=== PATIENT | male | born 1955 | race Caucasian/White ===

== ENCOUNTER → 2016-12-14 | Outpatient (CLI) | payer BC ==
--- NOTE | 2016-12-14 13:17 | RADIOLOGY REPORT (SQ) ---
EXAM DESCRIPTION: VENOUS BILATERAL LOWER COMPLETED DATE/TIME: 12/14/2016 12:47 pm REASON FOR STUDY: BLE EDEMA M79.89 OTHER SPECIFIED SOFT TISSUE DISORDERS COMPARISON: None. TECHNIQUE: Dynamic and static quiñonez scale and color images acquired of both lower extremity venous sy stems. Selected spectral images acquired with additional compression and augmentation maneuvers. Imag es stored on PACS. LIMITATIONS: None. FINDINGS: RIGHT LEG COMMON FEMORAL AND FEMORAL: Normal phasicity, compression and augmentation. No visualized echogenic m aterial on quiñonez scale. No defects on color images. POPLITEAL: There is echogenic chronic thrombus along the wall of the right popliteal vein which preve nts complete compression. This is incompletely occlusive. Patient states he had blood clot in this area 3 to 5 years ago. CALF VESSELS: Normal compression and augmentation. No visualized echogenic material on quiñonez scale. No defects on color image. GSV AND SSV: Normal compression. No visualized echogenic material on quiñonez scale. No defects on color images. ANY DEEP VENOUS INSUFFICIENCY: Not evaluated. ANY EVIDENCE OF POPLITEAL CYST: No. OTHER: No other significant finding. LEFT LEG COMMON FEMORAL AND FEMORAL: Normal phasicity, compression and augmentation. No visualized echogenic m aterial on quiñonez scale. No defects on color images. POPLITEAL: Normal compression and augmentation. No visualized echogenic material on quiñonez scale. No de fects on color images. CALF VESSELS: Normal compression and augmentation. No visualized echogenic material on quiñonez scale. No defects on color images. GSV AND SSV: Normal compression. No visualized echogenic material on quiñonez scale. No defects on color images. ANY DEEP VENOUS INSUFFICIENCY: Not evaluated. ANY EVIDENCE POPLITEAL CYST: No. OTHER: No other significant finding. 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 TECHNICAL DOCUMENTATION: JOB ID: [id number] [employer]- All Rights Reserved
== END ==
LOC: SP 09:21
PROVIDERS: ATTEND Internal Medicine Medical Oncology
DX: M79.89 Other specified soft tissue disorders (principal)
CPT/HCPCS: 93970

== ENCOUNTER 2020-02-03 14:16 | Emergency (ER) | payer BC ==
[2020-02-03 14:24] VITALS: BP 141/80
[2020-02-03] MEDS ORDERED: KETOROLAC TROMETHAMINE INJ/PF 30 MG/1 ML SDV IV ONE (14:56)
[2020-02-03] MEDS ORDERED: NORMAL SALINE 1000 ML 1,000 ML IV ONE (14:56)
[2020-02-03] MEDS ORDERED: ONDANSETRON HCL INJ/PF 4 MG/2 ML SDV IV ONE (15:03)
--- NOTE | 2020-02-03 15:03 | ER Document Report ---
ED Medical Screen (RME) - General Chief Complaint: Abdominal Pain Stated Complaint: ABDOMINAL PAIN,BACK PAIN Time Seen by Provider: 02/03/20 14:42 Primary Care Provider: KAITLYN MCCAIN MD [Primary Care Provider] - Follow up as needed TRAVEL OUTSIDE OF THE [place] IN LAST 30 DAYS: No - HPI Notes: 02/03/20 14:56 64-year-old male with a history of diverticulitis, kidney stones partial lower colectomy presents to the emergency room for severely left lower quadrant abdominal pain that started 3 days ago. Reports he did have a large bowel movement on Sunday, but he feels like he can get everything out. His did give him mag citrate and MiraLAX which just made him feel nauseous. Patient denies any melena. Patient has reported increased nausea and vomiting in the last 3 days. was concerned there may be some scar tissue that is causing this left lower quadrant pain. Patient is a had a colonoscopy in 3 years ago I have greeted and performed a rapid initial assessment of this patient. A comprehensive ED assessment and evaluation of the patient, analysis of test results and completion of the medical decision making process will be conducted by additional ED providers. PHYSICAL EXAMINATION: GENERAL: Well-appearing, well-nourished and in mild distress LUNGS: No respiratory distress Musculoskeletal: Normal range of motion abd: LLQ abd pain, guarding - Related Data Allergies/Adverse Reactions: No Known Allergies Allergy (Verified 02/03/20 14:41) Past Medical History - Social History Chew tobacco use (# tins/day): No Frequency of alcohol use: Social Drug Abuse: None - Past Medical History Cardiac Medical History: Reports: Hx DVT, Hx Hypercholesterolemia Denies: Hx Coronary Artery Disease, Hx Heart Attack, Hx Hypertension Pulmonary Medical History: Reports: Hx Pneumonia Denies: Hx Asthma, Hx Bronchitis, Hx COPD Neurological Medical History: Denies: Hx Cerebrovascular Accident, Hx Seizures Renal/ Medical History: Reports: Hx Kidney Stones GI Medical History: Reports: Hx Diverticulitis Musculoskeltal Medical History: Denies Hx Arthritis Past Surgical History: Reports: Hx Adenoidectomy, Hx Herniorrhaphy, Hx Oral Surgery, Hx Tonsillectomy, Hx Umbilical Hernia - Immunizations Immunizations up to date: Yes Hx Diphtheria, Pertussis, Tetanus Vaccination: Yes Physical Exam - Vital signs Vitals: Temp Pulse Resp BP Pulse Ox 98.6 F 72 16 141/80 H 97 02/03/20 14:22 02/03/20 14:22 02/03/20 14:22 02/03/20 14:22 02/03/20 14:22 Course - Vital Signs Vital signs: Temp Pulse Resp BP Pulse Ox 98.6 F 72 16 141/80 H 97 02/03/20 14:41 02/03/20 14:22 02/03/20 14:22 02/03/20 14:22 02/03/20 14:22 Doctor's Discharge - Discharge Referrals: KAITLYN MCCAIN MD [Primary Care Provider] - Follow up as needed
[2020-02-03 15:46] LABS: ABSOLUTE EOSINOPHILS # (AUTO) 0.1 10^3/uL (0.0-0.6); ABSOLUTE LYMPHOCYTES (AUTO) 1.1 10^3/uL (0.5-4.7); ABSOLUTE MONOCYTES (AUTO) 0.8 10^3/uL (0.1-1.4); AMORPHOUS SEDIMENT,URINE TRACE /HPF; APPEARANCE,URINE CLOUDY; BASOPHILS % (AUTO) 0.3 % (0-2); BILIRUBIN,URINE NEGATIVE (NEGATIVE); COLOR,URINE YELLOW; EOSINOPHILS % (AUTO) 0.8 % (0-6); GLUCOSE, URINE NEGATIVE (NEGATIVE); HEMATOCRIT 44.7 % (37.9-51.0); HEMOGLOBIN 15.1 g/dL (13.5-17.0); KETONES,URINE NEGATIVE (NEGATIVE); LEUKOCYTE ESTERASE,URINE NEGATIVE (NEGATIVE); LYMPHOCYTES % (AUTO) 13.7 % (13-45); MEAN CORPUSCULAR HEMOGLOBIN 28.8 pg (27.0-33.4); MEAN CORPUSCULAR HGB CONC 33.8 g/dL (32.0-36.0); MEAN CORPUSCULAR VOLUME 85 fl (80-97); MONOCYTES % (AUTO) 10.4 % (3-13); NITRITE,URINE NEGATIVE (NEGATIVE); PLATELET COUNT 209 10^3/uL (150-450); PROTEIN,URINE NEGATIVE (NEGATIVE); RED BLOOD COUNT 5.25 10^6/uL (4.35-5.55); RED CELL DISTRIBUTION WIDTH 13.2 % (11.5-14.0); SEGMENTED NEUTROPHILS % (AUTO) 74.8 % (42-78); TOTAL CELLS COUNTED % (AUTO) 100 %; URINE SPECIFIC GRAVITY 1.017; UROBILINOGEN,URINE NEGATIVE mg/dL (<2.0); WHITE BLOOD COUNT 8.1 10^3/uL (4.0-10.5)
[2020-02-03 15:51] LABS: ALBUMIN 4.2 g/dL (3.5-5.0); ALKALINE PHOSPHATASE 91 U/L (38-126); ANION GAP 10 (5-19); ASPARTATE AMINO TRANSFERASE 27 U/L (17-59); BILIRUBIN,DIRECT 0.3 mg/dL (0.0-0.4); BILIRUBIN,TOTAL 0.7 mg/dL (0.2-1.3); BLOOD UREA NITROGEN 17 mg/dL (7-20); CALCIUM 9.6 mg/dL (8.4-10.2); CARBON DIOXIDE 28 mmol/L (22-30); CHLORIDE 103 mmol/L (98-107); GLUCOSE 127 mg/dL (75-110); POTASSIUM 4.7 mmol/L (3.6-5.0); TOTAL PROTEIN 6.7 g/dL (6.3-8.2)
--- NOTE | 2020-02-03 17:04 | ER Document Report ---
ED GI/ - General Chief Complaint: Abdominal Pain Stated Complaint: ABDOMINAL PAIN,BACK PAIN Time Seen by Provider: 02/03/20 14:42 Primary Care Provider: KAITLYN MCCAIN MD [Primary Care Provider] - Follow up as needed Notes: CHIEF COMPLAINT: Abdominal pain and constipation for 5 days HPI: 64-year-old male with history of diverticulitis and kidney stones presenting to the emergency department for evaluation of left flank pain that began approximately 5 days ago, sharp in nature, seems to go away 3 days ago and then reoccurred 2 days ago. Describes constipation for the last 3 days. Patient states it does feel slightly like his diverticulitis does not feel like his kidney stones. Patient states that bending and moving did not seem to change the character of the discomfort. states that she has given the patient magnesium citrate at home and he did have a bowel movement 3 days ago but has been having more difficulty the last 2 days. Patient did throw up the magnesium citrate today. Patient denies any penile or testicular pain ROS: See HPI - all other systems were reviewed and are otherwise negative Constitutional: no fever Eyes: no drainage, no blurred vision ENT: no runny nose, no sore throat Cardiovascular: no chest pain Resp: no SOB, no cough GI: no vomiting, no diarrhea, + abdominal pain : no dysuria Integumentary: no rash Allergy: no hives Musculoskeletal: no extremity pain or swelling Neurological: no numbness/tingling, no weakness MEDICATIONS: I agree with the patient medications as charted by the RN. ALLERGIES: I agree with the allergies as charted by the RN. PAST MEDICAL HISTORY/PAST SURGICAL HISTORY: Reviewed and agree as charted by RN. SOCIAL HISTORY: Reviewed and agree as charted by RN. FAMILY HISTORY: No significant familial comorbid conditions directly related to patient complaint EXAM: Reviewed vital signs as charted by RN. CONSTITUTIONAL: Alert and oriented and responds appropriately to questions. Well-appearing; well-nourished HEAD: Normocephalic; atraumatic EYES: PERRL; Conjunctivae clear, sclerae non-icteric ENT: normal nose; no rhinorrhea; moist mucous membranes; pharynx without lesions noted, no uvula edema or deviation, no tonsillar hypertrophy, phonation normal NECK: Supple without meningismus; non-tender; no cervical lymphadenopathy, no masses CARD: RRR; no murmurs, no clicks, no rubs, no gallops; symmetric distal pulses RESP: Normal chest excursion without splinting or tachypnea; breath sounds clear and equal bilaterally; no wheezes, no rhonchi, no rales, pulse oximetry 99% on room air not hypoxic ABD/GI: Normal bowel sounds; non-distended; soft, unable to reproduce any discomfort on palpation of the abdomen, no rebound, no guarding; no palpable organomegaly or masses. BACK: The back appears normal and is non-tender to palpation, there is no CVA tenderness EXT: Normal ROM in all joints; non-tender to palpation; no cyanosis, no effusions, no edema SKIN: Normal color for age and race; warm; dry; good turgor; no acute lesions noted NEURO: Moves all extremities equally; Motor and sensory function intact PSYCH: The patient's mood and manner are appropriate. Grooming and personal hygiene are appropriate. MDM: 64-year-old male left lower quadrant left flank pain over the last several days with constipation. Diverticulitis and kidney stone history. Has had a left colectomy previously from the diverticulitis. Initial screening labs did not show significant abnormalities although he does have trace hematuria noted. He does not have reproducible pain on exam, CT imaging ordered via triage process TRAVEL OUTSIDE OF THE [place] IN LAST 30 DAYS: No - Related Data Allergies/Adverse Reactions: No Known Allergies Allergy (Verified 02/03/20 14:41) Past Medical History - Social History Smoking Status: Never Smoker Chew tobacco use (# tins/day): No Frequency of alcohol use: Social Drug Abuse: None Family History: Reviewed & Not Pertinent Patient has homicidal ideation: No - Past Medical History Cardiac Medical History: Reports: Hx DVT, Hx Hypercholesterolemia Denies: Hx Coronary Artery Disease, Hx Heart Attack, Hx Hypertension Pulmonary Medical History: Reports: Hx Pneumonia Denies: Hx Asthma, Hx Bronchitis, Hx COPD Neurological Medical History: Denies: Hx Cerebrovascular Accident, Hx Seizures Renal/ Medical History: Reports: Hx Kidney Stones GI Medical History: Reports: Hx Diverticulitis Musculoskeletal Medical History: Denies Hx Arthritis Past Surgical History: Reports: Hx Adenoidectomy, Hx Herniorrhaphy, Hx Oral Surgery, Hx Tonsillectomy, Hx Umbilical Hernia - Immunizations Immunizations up to date: Yes Hx Diphtheria, Pertussis, Tetanus Vaccination: Yes Hx Pneumococcal Vaccination: 06/19/13 Physical Exam - Vital signs Vitals: Temp Pulse Resp BP Pulse Ox 98.6 F 72 16 141/80 H 97 02/03/20 14:22 02/03/20 14:22 02/03/20 14:22 02/03/20 14:22 02/03/20 14:22 Course - Re-evaluation Re-evalutation: 02/03/20 19:22 Patient was noted to have a 1.1 cm mid ureteral stone on the left. I discussed this with Dr. Topher Wolff at [facility] per the patient's request as he prefers to go to [facility] for his care. As patient is reasonably comfortable at this time he believes patient may be discharged and they will call the patient to be seen in clinic tomorrow as he will likely need extraction of this kidney stone. I discussed this with the patient and his and they are com fortable with this plan. I will call the patient and pain medication for tonight he can return for uncontrolled pain or worsening symptoms - Vital Signs Vital signs: Temp Pulse Resp BP Pulse Ox 98.6 F 72 16 141/80 H 97 02/03/20 14:41 02/03/20 14:22 02/03/20 14:22 02/03/20 14:22 02/03/20 14:22 - Laboratory Result Diagrams: 02/03/20 15:10 02/03/20 15:10 Laboratory results interpreted by me: 02/03/20 02/03/20 15:10 15:10 Creatinine 1.38 H Est GFR (MDRD) Non-Af 52 L Glucose 127 H Urine Blood MODERATE H Discharge - Discharge Clinical Impression: Kidney stone on left side, Lung nodule, Prostate hypertrophy Condition: Stable Disposition: HOME, SELF-CARE Additional Instructions: Follow-up with [facility] tomorrow in clinic for further evaluation and management of the kidney stone on the left. Return to the emergency department for uncontrolled pain or vomiting. Pain medications as prescribed no driving if taking Percocet for pain. Take Zofran for nausea vomiting. Take Flomax for spasm. Prescriptions: Tamsulosin HCl [Flomax 0.4 mg Cap.sr] 0.4 mg PO DAILY #7 cap.sr.24h Oxycodone HCl/Acetaminophen [Percocet 5-325 mg Tablet] 1 tab PO Q4H PRN #15 tab PRN Reason: Ondansetron [Zofran Odt 4 mg Tablet] 1 - 2 tab PO Q4H PRN #15 tab.rapdis PRN Reason: For Nausea/Vomiting Referrals: KAITLYN MCCAIN MD [Primary Care Provider] - Follow up as needed TOPHER WOLFF JR, MD [NO LOCAL MD] - Follow up as needed
[2020-02-03] MEDS ORDERED: TAMSULOSIN HCL 0.4 MG CAP.SR.24H PO ONE (18:03)
[2020-02-03] MEDS ORDERED: OXYCODONE-ACETAMINOPHEN 5-325 MG TABLET PO ONE (18:03)
--- NOTE | 2020-02-03 18:56 | RADIOLOGY REPORT (SQ) ---
EXAM DESCRIPTION: CT ABD/PELVIS WITH IV ORAL IMAGES COMPLETED DATE/TIME: 02/03/2020 5:57 pm REASON FOR STUDY: LLQ abd pain, no bm in 3 days, hx of diverticuliti COMPARISON: None. TECHNIQUE: CT scan of the abdomen and pelvis performed using helical scanning technique with dynamic intravenous contrast injection. No oral contrast. Images reviewed with lung, soft tissue, and bone windows. Reconstructed coronal and sagittal MPR images reviewed. Delayed images for evaluation of the urinary system also acquired. All images stored on PACS. All CT scanners at this facility use dose modulation, iterative reconstruction, and/or weight based d osing when appropriate to reduce radiation dose to as low as reasonably achievable (ALARA). [facility]: Dose Right [facility]: CareDose [facility]: Dose Right [facility]: Teradose 4D [facility]: Ruby & Revolver CONTRAST TYPE AND DOSE: contrast/concentration: Isovue 350.00 mmol/ml; Total Contrast Delivered: 100 .0 ml; Total Saline Delivered: 46.0 ml RENAL FUNCTION: Creatinine - 1.3 BUN=17 RADIATION DOSE: CT Rad equipment meets quality standard of care and radiation dose reduction techniq ues were employed. CTDIvol: 18.1 - 21.0 mGy. DLP: 2298 mGy-cm.. LIMITATIONS: None. FINDINGS: LOWER CHEST: A very small 2-3 mm right lung base pulmonary nodule. Slight lung base scar ring or atelectasis. LIVER: Normal size. No masses. No dilated ducts. The hepatic and portal veins are patent. SPLEEN: Normal size. No focal lesions. PANCREAS: No masses. No significant calcifications. No adjacent inflammation or peripancreatic fluid collections. Pancreatic duct not dilated. GALLBLADDER: No identified stones by CT criteria. No inflammatory changes to suggest cholecystitis. ADRENAL GLANDS: No significant masses or asymmetry. RIGHT KIDNEY AND URETER: Small subcentimeter nonobstructing calcifications in the mid-lower pole of the left kidney with some of the largest measuring 5-6 mm. LEFT KIDNEY AND URETER: A 1.1 cm(coronal dimension image 47, series 602) calculus in the mid ureter results in moderate to moderate severe left-sided hydronephrosis. Several nonobstructing calcificat ions in the upper -mid lower pole of the left kidney, with some of the largest measuring approximatel y 6-7 mm. AORTA AND VESSELS: No aneurysm. No dissection. Renal arteries, SMA, celiac without stenosis. RETROPERITONEUM: No retroperitoneal adenopathy, hemorrhage or masses. BOWEL AND PERITONEAL CAVITY: Prior partial colectomy. No free fluid. APPENDIX: Not visualized. PELVIS: The prostate gland is mildly enlarged and measures 5.6 cm in diameter. Prostatic concretion s. No mass. No free fluid. Normal bladder. ABDOMINAL WALL: Prior umbilical hernia repair is suggested. BONES: No significant or acute findings. OTHER: No other significant finding. IMPRESSION: 1. A mid left ureteral calculus results in moderate to moderate severe left-sided hydro nephrosis. 2. Bilateral nonobstructing nephrolithiasis. 3. Additional findings as above. TECHNICAL DOCUMENTATION: JOB ID: [id number] Quality ID # [id number]: Final reports with documentation of one or more dose reduction techniques (e.g., Au tomated exposure control, adjustment of the mA and/or kV according to patient size, use of iterative reconstruction technique) 2010 [employer]- All Rights Reserved Reading location - IP/workstation name: [email or web address]
== END 2020-02-03 19:58 | disposition home or self-care (01) ==
LOC: ER 14:16
DX: N20.0 Calculus of kidney (principal); R91.1 Solitary pulmonary nodule; N40.0 Benign prostatic hyperplasia without lower urinary tract symptoms; R10.9 Unspecified abdominal pain; M54.9 Dorsalgia, unspecified; K59.00 Constipation, unspecified
CPT/HCPCS: 99285; 96361; 96374; 96375; 36415; 83690; 85025; 80053; 81001; 74177; J1885; J2405; J7030